=== PATIENT | male | born 1985 | race Caucasian/White ===

== ENCOUNTER 2021-10-10 20:22 | Emergency (ER) | payer SELFPAY ==
[2021-10-10 20:40] VITALS: BP 122/80; PULSE 93; TEMP 101.7; BMI 19.1
[2021-10-10] MEDS ORDERED: KETOROLAC TROMETHAMINE 30 MG/1 ML VIAL IM ONE (21:06)
[2021-10-10] MEDS ORDERED: KETOROLAC TROMETHAMINE 30 MG/1 ML VIAL ONE (21:09)
== END 2021-10-10 21:14 | disposition home or self-care (01) ==
LOC: FER 20:22
PROC: 3E023GC Introduction of Other Therapeutic Substance into Muscle, Percutaneous Approach (ICD-10-PCS; principal; 2021-10-10)
DX: M54.50 Low back pain, unspecified (principal); B34.9 Viral infection, unspecified; R50.9 Fever, unspecified
CPT/HCPCS: 99284-25; C9803-CS; U0003; U0005